=== PATIENT | female | born 1990 | race Two or more races ===

== ENCOUNTER 2022-03-30 15:46 | Emergency (ER) | payer OTHER ==
[~2022-03-30] VITALS: Ht 154.9 cm; Wt 51.3 kg
[2022-03-30] MEDS ORDERED: IRON236 MG (16:14)
[2022-03-30] MEDS ORDERED: PRENATAL + DHA1 EAC1 (16:14)
[2022-03-31] MEDS ORDERED: MIRALAX510 GM PO (01:29)
== END 2022-03-31 03:13 | disposition home or self-care (01) ==
LOC: ER 15:46
DX: O26.892 Other specified pregnancy related conditions, second trimester (principal); K59.00 Constipation, unspecified; O99.891 Other specified diseases and conditions complicating pregnancy; N13.30 Unspecified hydronephrosis; Z3A.16 16 weeks gestation of pregnancy

== ENCOUNTER 2022-09-02 09:51 | Inpatient (IN) | payer OTHER ==
[~2022-09-02] VITALS: Ht 152.4 cm; Wt 2.7 kg
[~2022-09-02 09:51] MED LIST: IRON236 MG; MIRALAX510 GM PO; PRENATAL + DHA1 EAC1
[2022-09-07] MEDS ORDERED: SURFAK240 M1 PO (12:03)
[2022-09-07] MEDS ORDERED: IBU800 MG PO (12:03)
== END 2022-09-07 13:08 | disposition home or self-care (01) | DRG 787 ==
LOC: LDR 09-04 13:03 → OB/GYN 09-04 13:03 → LDR 09-04 18:54 → O/R 09-05 20:45 → OB/GYN 09-05 21:39
PROVIDERS: ADMIT Obstetrics & Gynecology; ATTEND Obstetrics & Gynecology
PROC: 3E0P7VZ Introduction of Hormone into Female Reproductive, Via Natural or Artificial Opening (ICD-10-PCS; 2022-09-04)
PROC: 4A1HXCZ Monitoring of Products of Conception, Cardiac Rate, External Approach (ICD-10-PCS; 2022-09-04)
PROC: 3E033VJ Introduction of Other Hormone into Peripheral Vein, Percutaneous Approach (ICD-10-PCS; 2022-09-05)
PROC: 10D00Z1 Extraction of Products of Conception, Low, Open Approach (ICD-10-PCS; principal; 2022-09-05 20:00)
DX: O62.1 Secondary uterine inertia (principal); O41.03X0 Oligohydramnios, third trimester, not applicable or unspecified; Z3A.39 39 weeks gestation of pregnancy; Z37.0 Single live birth; Z20.822 Contact with and (suspected) exposure to COVID-19